=== PATIENT | female | born 1980 | race Caucasian/White ===

== ENCOUNTER 2017-08-19 10:28 | Day surgery (SDC) | payer BC ==
[2017-08-18 13:25] VITALS: BMI 23.7
[2017-08-19] MEDS ORDERED: CEFAZOLIN/Water 2 GM/20 ML SYRINGE ONE (12:03)
[2017-08-19] MEDS ORDERED: Bupivacaine/Epinephrine 0.25% 30 ML VIAL ONE (12:16)
[2017-08-19 12:21] LABS: Hematocrit 46.9 % (36.0-47.0); Mean Platelet Volume 8.1 fL (7.4-10.4); Red Blood Cell (RBC) Count 5.17 mill/uL (4.20-5.40); White Blood Cell (WBC) Count 4.3 thou/uL (4.8-10.8)
[2017-08-19] MEDS ORDERED: Fentanyl 250 MCG/5 ML VIAL ONE (12:27)
[2017-08-19] MEDS ORDERED: Fentanyl 100 MCG/2 ML VIAL ONE (13:47)
[2017-08-19] MEDS ORDERED: HYDROcodone/Acetaminophen 5/325 mg Tablet ONE (15:45)
[2017-08-19] MEDS ORDERED: Ketorolac Tromethamine 30 MG/ML VIAL ONE (16:02)
[2017-08-19] MEDS ORDERED: Lidocaine 1% PF 5 ML VIAL ONE (16:02)
[2017-08-19] MEDS ORDERED: Dexamethasone 20 MG/5 ML VIAL ONE (16:02)
[2017-08-19] MEDS ORDERED: Ondansetron HCl/PF 4 MG/2 ML Vial ONE (16:02)
[2017-08-19] MEDS ORDERED: Glycopyrrolate 0.2 MG/ML 5 ML SYRINGE ONE (16:02)
[2017-08-19] MEDS ORDERED: Propofol 200 MG/20 ML VIAL ONE (16:02)
--- NOTE | 2017-08-20 10:54 | OP ---
DATE OF PROCEDURE: 08/19/2017 PREOPERATIVE DIAGNOSIS: Umbilical hernia. POSTOPERATIVE DIAGNOSIS: Umbilical hernia. PROCEDURE: Umbilical hernia repair with mesh, Proceed ventral patch small. SURGEON: Asa Sepulveda M.D. ANESTHESIA: General. ESTIMATED BLOOD LOSS: Minimal. COMPLICATIONS: None. SPECIMEN: None. FINDINGS: Umbilical hernia. TECHNIQUE: The patient was taken to the operating room and placed supine on the table. After genera l anesthetic was obtained, the abdomen was prepped and draped in a sterile fashion. Curved incision was made below the umbilicus. Cautery was used to dissect down to and score the fascia. Umbilical s talk was amputated exposing the umbilical defect. Edges of the defect are dissected back to the fasc ia. Proceed ventral patch small brought into the sterile field. The underlay was placed in the prep eritoneal space, tails pulled up laterally against the posterior abdominal wall. The tails were sewn via U stitch of [place] to the fascial edges superiorly, inferiorly, and laterally. The wound was i rrigated. Local anesthetic was applied. The fascia was closed loosely over the mesh. The wound is irrigated. The umbilical skin was tacked back down using 3-0 Vicryl. The skin was closed using runn ing 4-0 Monocryl and Dermabond. The patient was en route to recovery in stable condition. All instr ument counts, needle counts, and lap counts were correct.
== END 2017-08-19 16:20 | disposition home or self-care (01) ==
LOC: SDC 10:28
PROVIDERS: ATTEND Surgery
PROC: 0WUF0JZ Supplement Abdominal Wall with Synthetic Substitute, Open Approach (ICD-10-PCS; principal; 2017-08-19)
DX: K42.9 Umbilical hernia without obstruction or gangrene (principal); J45.909 Unspecified asthma, uncomplicated; Z79.899 Other long term (current) drug therapy; Z98.890 Other specified postprocedural states; Z86.010 Personal history of colon polyps
CPT/HCPCS: 36415; 85027; 96374; C1781; J1100; J1885; J2001; J2405; J2704; J3010

== ENCOUNTER 2019-01-15 13:16 | Outpatient (CLI) | payer BC ==
--- NOTE | 2019-01-15 14:08 | MMO ---
Bilateral MAMMO Bilat Screen [facility]. CLINICAL HISTORY: Patient is 38 years old and is seen for screening. The patient has no family history of breast cancer. The patient has no personal history of cancer. VIEWS: The views performed were: bilateral craniocaudal with tomosynthesis; bilateral mediolateral oblique with tomosynthesis; and bilateral exaggerated craniocaudal. MAMMOGRAM FINDINGS: There are scattered fibroglandular densities. There are benign appearing calcifications seen in both breasts. There are no suspicious masses, suspicious calcifications, or new areas of architectural distortion. IMPRESSION: THERE IS NO MAMMOGRAPHIC EVIDENCE OF MALIGNANCY. A ROUTINE FOLLOW-UP MAMMOGRAM AT AGE 42 IS RECOMMENDED. THE RESULTS OF THIS EXAM WERE SENT TO THE PATIENT. ACR BI-RADS Category 2 - Benign finding MAMMOGRAPHY NOTE: 1. A negative mammogram report should not delay a biopsy if a dominant of clinically suspicious mass is present. 2. Approximately 10% to 15% of breast cancers are not detected by mammography. 3. Adenosis and dense breasts may obscure an underlying neoplasm.
== END 2019-01-15 13:17 | disposition home or self-care (01) ==
LOC: BICMAMMO 13:16
PROVIDERS: ATTEND Obstetrics & Gynecology
DX: Z12.31 Encounter for screening mammogram for malignant neoplasm of breast (principal)
CPT/HCPCS: 77063; 77067